=== PATIENT | female | born 1945 | race Caucasian/White ===

== ENCOUNTER 2018-08-23 23:14 | Emergency (ER) | payer OTHER ==
[~2018-08-23] VITALS: Ht 157.5 cm; Wt 81.6 kg
== END 2018-08-24 06:34 | disposition home or self-care (01) ==
LOC: ER 23:14
DX: K29.60 Other gastritis without bleeding (principal); R51 Headache

== ENCOUNTER 2018-12-17 18:06 | Emergency (ER) | payer OTHER ==
[~2018-12-17] VITALS: Ht 157.5 cm; Wt 81.6 kg
== END 2018-12-17 21:15 | disposition home or self-care (01) ==
LOC: ER 18:06
DX: M54.2 Cervicalgia (principal); M62.838 Other muscle spasm